=== PATIENT | female | born 1945 | race Caucasian/White ===

== ENCOUNTER → 2016-12-03 | Outpatient (CLI) | payer MEDICARE ==
[~2016-12-03] MED LIST: BUDE10.2 IH; CALC600T12 PO; CHOL50003 PO; LOVA20TA2 PO; MULT-963 PO; OMG1KC PO; OSTEO BI-FLEX1 EACH PO; ROSU20TA PO; RT-ALBUINH IH; [UNRECOGNIZED DRUG - OTHER] OU; calcium PO; symbicort inhaler IH
--- NOTE | 2016-12-03 18:33 | Diagnostic Imaging Report ---
EXAMINATION: DEXA scan. INDICATION: Osteopenia. TECHNIQUE: Bone mineral density estimated based on dual energy radiography over the lumbar spine and femoral necks, was performed. FINDINGS: The lumbar spine T-score is -2.5. This is 5% decreased density compared to 2013 exam. T-score over the left femoral neck is -0.6 and on the right is -0.5. IMPRESSION: Marked osteopenia. Dictated by: Dictated on workstation # [id number]
== END ==
LOC: RAD 10:13
PROVIDERS: ATTEND Nurse Practitioner Family
DX: M81.0 Age-related osteoporosis without current pathological fracture (principal)
CPT/HCPCS: 77080

== ENCOUNTER 2016-12-24 19:50 | Outpatient (CLI) | payer MEDICARE ==
[~2016-12-24 19:50] MED LIST changes: -BUDE10.2 IH; -CALC600T12 PO; -ROSU20TA PO; -RT-ALBUINH IH
[2016-12-25] MEDS ORDERED: BUDE10.2 IH (09:51)
[2016-12-25] MEDS ORDERED: CALC600T12 PO (09:51)
[2016-12-25] MEDS ORDERED: ROSU20TA PO (09:51)
[2016-12-25] MEDS ORDERED: RT-ALBUINH IH (09:51)
== END 2016-12-25 06:40 | disposition home or self-care (01) ==
LOC: SLEEP 19:50
PROVIDERS: ATTEND Nurse Practitioner Family
DX: G47.33 Obstructive sleep apnea (adult) (pediatric) (principal)
CPT/HCPCS: 95810

== ENCOUNTER 2016-12-25 05:29 | Outpatient (CLI) | payer MEDICARE ==
[~2016-12-25] VITALS: Ht 152.4 cm; Wt 49.9 kg
[2016-12-25] MEDS ORDERED: CALC600T12 PO (09:51)
[2016-12-25] MEDS ORDERED: RT-ALBUINH IH (09:51)
[2016-12-25] MEDS ORDERED: ROSU20TA PO (09:51)
[2016-12-25] MEDS ORDERED: BUDE10.2 IH (09:51)
== END 2016-12-25 09:58 ==
LOC: PREOP 05:29
PROVIDERS: ATTEND Surgery
DX: Z01.818 Encounter for other preprocedural examination (principal); Z12.11 Encounter for screening for malignant neoplasm of colon

== ENCOUNTER 2016-12-28 09:23 | Day surgery (SDC) | payer MEDICARE ==
[~2016-12-28] VITALS: Ht 152.4 cm; Wt 49.9 kg
[~2016-12-28 09:23] MED LIST changes: +BUDE10.2 IH; +CALC600T12 PO; +ROSU20TA PO; +RT-ALBUINH IH
[2016-12-28 09:35] VITALS: BP 109/67
[2016-12-28] MEDS ORDERED: NS IV 500 ML 500 ML IV PRN (09:35)
[2016-12-28] MEDS ORDERED: FLUMAZENIL (ROMAZICON) 0.1 MG/ML 5 ML VIAL INJ PRN (09:45)
[2016-12-28] MEDS ORDERED: NALOXONE 0.4 MG/ML 1 ML (NARCAN) VIAL IVP PRN (09:45)
[2016-12-28] MEDS ORDERED: NS IV 500 ML 500 ML ONE (09:53)
[2016-12-28] MEDS ORDERED: fentaNYL INJECTION 100 MCG/2 ML AMP ONE ×2 (11:10→11:46)
[2016-12-28] MEDS ORDERED: MIDAZOLAM 2 MG/2 ML (VERSED) VIAL ONE ×3 (11:11)
--- NOTE | 2016-12-28 11:27 | Conscious Sedation/ASA ---
Conscious Sedation Pre-Proced Time Reviewed: 11:27 ASA Class: 2 Airway Mallampati Classification: ([place] appropriate class) I. II. III, IV Lungs Heart ASA score ASA 1: a normal healthy patient ASA 2: a patient with a mild systemic disease (mid diabetes, controlled hypertension, obesity ASA 3: a patient with a severe systemic disease that limits activity (angina , COPD, prior Myocardial infarction) ASA 4: a patient with an incapacitating disease that is a constant threat to life (CHF, renal failure) ASA 5: a moribund patient not expected to survive 24 hrs. (ruptured aneurysm) ASA 6: a declared brain patient whose organs are being harvested. For emergent operations, add the letter E after the classification Grade 1 Sedation Plan: Discussed options with patient/fam Note The patient is an appropriate candidate to undergo the planned procedure, sedation, and anesthesia. The patient immediately re-assessed prior to indication. NATACHA VALDEZ MD December 28, 2016 11:27 am
[2016-12-28] MEDS: fentaNYL INJECTION 100 MCG/2 ML AMP IVP PRN ×4 (11:35→11:51)
[2016-12-28] MEDS: MIDAZOLAM 2 MG/2 ML (VERSED) VIAL IVP PRN ×3 (11:36→11:45)
--- NOTE | 2016-12-28 12:00 | Endoscopy Procedure Report ---
Endoscopy Report Date: December 28, 2016 Preoperative Diagnosis: polyp surveillance Study Performed: Colonoscopy Procedure Instrument: Colonoscope Endo Procedure/Findings Findings 1.: Diverticulosis NATACHA VALDEZ MD December 28, 2016 12:00 pm
--- NOTE | 2016-12-28 12:01 | Discharge Inst-Simple/Standard ---
Discharge Inst-Standard Discharge Medications New, Converted or Re-Newed RX: Other Patient Instructions/Follow Up Plan of Care/Instructions/FU: please obtain a CT of abdomen and pelvis CORI Activity as Tolerated: Yes Discharge Diet: No Restrictions NATACHA VALDEZ MD December 28, 2016 12:01 pm
[2016-12-28 12:20] VITALS: BP 145/79
[2016-12-28 12:25] VITALS: BP 145/79
[2016-12-28 13:00] VITALS: BP 152/81
[2016-12-28 13:45] VITALS: BP 152/81
--- NOTE | 2016-12-28 22:58 | OPERATIVE REPORT ---
DATE OF SERVICE: 12/28/2016 PROCEDURE: Flexible sigmoidoscopy/incomplete colonoscopy. SURGEON: Natacha Valdez MD. INDICATION FOR PROCEDURE: This lady came in for surveillance colonoscopy. In 2012, she was found to have polyps in her colon. Informed consent was obtained after reviewing the procedure in detail. DESCRIPTION OF PROCEDURE: She was placed in left lateral decubitus position and her vital signs were monitored. Conscious sedation was achieved using Versed and fentanyl. Examination of the perianal area revealed skin tags and some external hemorrhoids. Digital examination was unremarkable. The colonoscope was then introduced in the rectum and advanced to the distal sigmoid colon. Due to diverticular disease, despite multiple attempts, sigmoid colon could not be negotiated. Therefore further attempts were abandoned with arrangements for modified CT scan. She tolerated the procedure well and was taken back to the nursing area in a stable condition. IMPRESSION: 1. Polyp surveillance. 2. Incomplete colonoscopy. 3. CT scan pending. Job ID: [id number] DocumentID: [id number] Dictated Date: 12/28/2016 11:56:59 Street Supervisor Date: 12/28/2016 22:22:35 Dictated By: NATACHA VALDEZ MD MTDD
== END 2016-12-28 13:50 | disposition home or self-care (01) ==
LOC: ENDO 09:23
PROVIDERS: ATTEND Surgery
DX: Z09 Encounter for follow-up examination after completed treatment for conditions other than malignant neoplasm (principal); Z86.010 Personal history of colon polyps; K57.90 Diverticulosis of intestine, part unspecified, without perforation or abscess without bleeding; E78.5 Hyperlipidemia, unspecified; M19.90 Unspecified osteoarthritis, unspecified site

== ENCOUNTER → 2016-12-29 | Outpatient (CLI) | payer MEDICARE ==
--- NOTE | 2016-12-29 14:30 | Diagnostic Imaging Report ---
PROCEDURE: CT abdomen and pelvis with rectal contrast. No IV contrast. TECHNIQUE: Multiple contiguous axial images were obtained through the abdomen and pelvis without the use of intravenous contrast. Prone imaging is performed as well as supine for better evaluation of the colon. INDICATION: Diverticulosis. History of polyps. FINDINGS: The lung bases demonstrate minimal atelectasis. The liver, the gallbladder, the spleen, the pancreas appear unremarkable. There is a low density left adrenal mass measuring 4.6 x 2.8 cm, indeterminate and a 1.9 cm right adrenal mass. The kidneys demonstrate no hydronephrosis or urinary tract stones. There is a 5.1 cm abdominal aortic aneurysm which appears to start at the level of the renal arteries. No para-aortic significant enlarged lymph nodes. The rectum and the colon are opacified with contrast. The sigmoid colon is not well distended and demonstrate thickening of multiple folds and possible underlying polyps. There is also diverticular disease with no evidence of diverticulitis. There are small filling defects that are mobile in the rest of the colon suggestive of fecal material with no definite mass. The appendix is normal. The adnexa and uterus appear grossly unremarkable. Osseous structures demonstrate no suspicious abnormality. IMPRESSION: 1. A 5.1 cm AAA that appears to start at the level of the renal arteries. 2. Low density adrenal masses up to 4.6 cm on the left side. Evaluation with a contrast-enhanced study or MRI is recommended. 3. Diverticulosis. No diverticulitis. 4. Thickening of multiple mucosal folds in the sigmoid colon, which is not well distended. This could relate to an inflammatory etiology or underlying polyps. Correlate clinically and with followup sigmoidoscopy. The findings were discussed with Dr. Luke at time of dictation. Dictated by: Dictated on workstation # [id number]
== END ==
LOC: RAD 11:00
PROVIDERS: ATTEND Surgery
DX: K57.90 Diverticulosis of intestine, part unspecified, without perforation or abscess without bleeding (principal); I71.4 Abdominal aortic aneurysm, without rupture; E27.9 Disorder of adrenal gland, unspecified
CPT/HCPCS: 74176

== ENCOUNTER → 2018-01-20 | Outpatient (CLI) | payer MEDICARE ==
--- NOTE | 2018-01-20 16:42 | Diagnostic Imaging Report ---
INDICATION: Left hand and wrist pain and swelling. COMPARISON: None. FINDINGS: Three radiographic views of the left hand were obtained and show no evidence of acute fracture or dislocation. Osseous structures are intact. There are advanced osteoarthritic changes primarily involving the distal interphalangeal joint spaces, although there is involvement of the proximal interphalangeal joint space of the fifth digit as well. Note is made of somewhat gull-wing appearance to the distal interphalangeal joint spaces. Metallic foreign bodies are also noted within the lateral palmar soft tissues overlying the fourth distal phalanx. No other unexpected radiopaque foreign bodies are seen. Soft tissue structures are otherwise unremarkable. IMPRESSION: 1. No radiographic evidence of acute fracture or dislocation. 2. Advanced osteoarthritic changes, as described above. There may be some component of underlying erosive osteoarthritis. 3. Foreign bodies of the fourth digit, as described above. Report was called to the office of Dr. Venkatesh Hernandez at 4:40 p.m., by robbie (for MK). Dictated by: Dictated on workstation # [id number]
--- NOTE | 2018-01-20 16:43 | Diagnostic Imaging Report ---
EXAMINATION: Left wrist at 04:37 p.m. INDICATION: Wrist pain. FINDINGS: Three views were obtained. There are no prior studies available for comparison. There is no fracture, dislocation, or acute bony abnormality identified. The osseous structures are demineralized. There is moderate degenerative disease of the radiocarpal joint and there is severe degenerative disease of the triscaphe joint. There is also chondrocalcinosis of the triangular fibrocartilage. There is mild soft tissue edema about the wrist joint as well. IMPRESSION: 1. There is no evidence for an acute bony abnormality. 2. These results were discussed with Dr. Venkatesh Hernandez. Dictated by: Dictated on workstation # [id number]
== END ==
LOC: RAD 16:01
DX: M19.042 Primary osteoarthritis, left hand (principal); M79.5 Residual foreign body in soft tissue
CPT/HCPCS: 73110; 73130

== ENCOUNTER → 2018-04-19 | Outpatient (CLI) | payer MEDICARE ==
--- NOTE | 2018-04-19 11:59 | Diagnostic Imaging Report ---
CLINICAL INDICATION: Patient with stenosis and carotid artery screening. Comparison: Ultrasound of the carotid arteries dated 12/01/2012. Exam: Real-time carotid Doppler duplex imaging is performed bilaterally. Peak systolic velocity, ICA/CCA peak systolic ratio, spectral analysis, and vascular morphology are studied. Findings: ARTERY VELOCITY Right Left CCA 0.64 m/s 0.76 m/s ICA 0.75 m/s 0.72 m/s ECA 0.36 m/s 0.67 m/s ICA/CCA 1.2 0.9 VERT.ART Antegrade Antegrade There is progression of bilateral carotid artery atherosclerotic disease which is less than 50% stenosis on grayscale imaging. Impression: Progression of atherosclerotic disease involving the bilateral carotid arteries with no grayscale or Doppler evidence of significant vascular stenosis. Dictated by: Dictated on workstation # [id number]
== END ==
LOC: RAD 10:51
PROVIDERS: ATTEND Nurse Practitioner Family
DX: Z13.6 Encounter for screening for cardiovascular disorders (principal); I65.23 Occlusion and stenosis of bilateral carotid arteries
CPT/HCPCS: 93880

== ENCOUNTER 2018-08-06 07:05 | Outpatient (RCR) | payer MEDICARE ==
--- NOTE | 2018-08-02 15:21 | NUR ---
PHONED YESSENIA GARCIA APRN TO SEE ABOUT MIDLINE PLACEMENT DUE TO BID SOLUMEDROL. YESSENIA GARCIA APRN GAVE TELEPHONE ORDER FOR MIDLINE PLACEMENT, LABS: CRP, CBC AUTO DIFF, CMP TO BE DRAWN.
[2018-08-02 15:30] VITALS: BP 159/77
[2018-08-02] MEDS: methylPREDNISolone 125 MG (Solu-MEDROL) VIAL IV SCH (15:55)
[2018-08-02 16:06] LABS: BASOPHILS % (AUTO) 0 % (0-10); EOSINOPHILS % (AUTO) 0 % (0-10); HEMATOCRIT 42 % (35-52); HEMOGLOBIN 13.6 G/DL (11.5-16.0); LYMPHOCYTES # (AUTO) 0.7 X 10^3 (1.0-4.0); LYMPHOCYTES % (AUTO) 4 % (12-44); MEAN CORPUSCULAR HEMOGLOBIN 31 PG (25-34); MEAN CORPUSCULAR HGB CONC 32 G/DL (32-36); MEAN CORPUSCULAR VOLUME 94 FL (80-99); MEAN PLATELET VOLUME 8.7 FL (7.4-10.4); MONOCYTES # (AUTO) 0.9 X 10^3 (0.0-1.0); MONOCYTES % (AUTO) 5 % (0-12); NEUTROPHILS # (AUTO) 15.2 X 10^3 (1.8-7.8); NEUTROPHILS % (AUTO) 90 % (42-75); PLATELET COUNT 303 10^3/uL (130-400); RED CELL DISTRIBUTION WIDTH 14.9 % (10.0-14.5); WHITE BLOOD COUNT 16.8 10^3/uL (4.3-11.0)
--- NOTE | 2018-08-02 16:13 | Diagnostic Imaging Report ---
INDICATION: Shortness of breath. PA and lateral chest obtained at 4:31 p.m. FINDINGS: Heart and mediastinal silhouette are normal in appearance. Lungs appear clear. There is no pneumothorax or pleural fluid. There is mild hyperinflation compatible with COPD. IMPRESSION: Mild COPD change. No acute process in the chest. Dictated by: Dictated on workstation # [id number]
[2018-08-02 16:19] LABS: ALANINE AMINOTRANSFERASE 24 U/L (0-55); ALBUMIN 4.5 GM/DL (3.2-4.5); ALKALINE PHOSPHATASE 90 U/L (40-136); BILIRUBIN,TOTAL 0.4 MG/DL (0.1-1.0); BUN/CREATININE RATIO 12; CALCIUM 9.9 MG/DL (8.5-10.1); CARBON DIOXIDE 28 MMOL/L (21-32); CHLORIDE 99 MMOL/L (98-107); CREATININE SERUM 0.84 MG/DL (0.60-1.30); GFR ESTIMATED > 60; GLUCOSE 113 MG/DL (70-105); POTASSIUM 3.5 MMOL/L (3.6-5.0); SODIUM 140 MMOL/L (135-145); TOTAL PROTEIN 7.7 GM/DL (6.4-8.2)
[2018-08-02 16:30] LABS: BAND NEUTROPHILS 0 %; BASOPHILS % (MANUAL) 0 %; EOSINOPHILS % (MANUAL) 1 %; LYMPHOCYTES % (MANUAL) 6 %; MONOCYTES % (MANUAL) 6 %; NEUTROPHILS % (MANUAL) 87 %; RBC MORPH NORMAL
[2018-08-03 07:00] VITALS: BP 138/76
[2018-08-03] MEDS: methylPREDNISolone 125 MG (Solu-MEDROL) VIAL IV SCH ×2 (07:04→19:59)
[2018-08-03 20:01] VITALS: BP 142/65
[2018-08-04] MEDS: methylPREDNISolone 125 MG (Solu-MEDROL) VIAL IV SCH ×2 (07:08→20:11)
[2018-08-04 07:10] VITALS: BP 152/84
[2018-08-05] MEDS: methylPREDNISolone 125 MG (Solu-MEDROL) VIAL IV SCH ×2 (07:10→20:10)
[2018-08-05 07:15] VITALS: BP 160/85
[2018-08-05 20:09] VITALS: BP 156/83
--- NOTE | 2018-08-05 20:15 | NUR ---
This RN called Dr. Hernandez in reference to the patient complaining of pain in her left midline. The arm is swollen and red but not warm to the touch. Dr. Hernandez orders to have blood cultures taken, the midline removed and IM shots of Solumedrol given until the IV can be discussed with the patient in the office. All orders repeated and confirmed.
[~2018-08-06] VITALS: Ht 152.4 cm; Wt 49.1 kg
[~2018-08-06 07:05] MED LIST changes: -ROSU20TA PO; +ROSU20TA2 PO; +methylPREDNISolone 125 MG (Solu-MEDROL) VIAL ONE
[2018-08-06] MEDS: methylPREDNISolone 125 MG (Solu-MEDROL) VIAL IM SCH ×2 (07:28→20:02)
[2018-08-06 07:30] VITALS: BP 144/71
[2018-08-06 19:50] VITALS: BP 156/83
[2018-08-07] MEDS: methylPREDNISolone 125 MG (Solu-MEDROL) VIAL IM SCH (08:45)
--- NOTE | 2018-08-07 09:02 | NUR ---
This RN called patient, at approximately 0825am, to see if she was coming out to hospital for her steroid medication. The patient stated she was "not going to come this morning and doesn't want to continue to take the Solumedrol." Patient has received 04/29 doses. Patient was complaining of hypertension, being shakey and flushed, and "just don't feel right." Patient denied shortness of breath, chest pain, or lightheadedness. Patient states she regularly takes Bystolic 5mg PO daily, but since her blood pressure was so high she took a full 10mg last night and this morning. Patient reports a history of diabetes from taking steroids, states she has a glucometer at home. This RN instructed patient to take her blood sugar. This RN also instructed patient to go to ER, [facility], or [facility]. Patient refused, states she will try to call Dr. Hernandez's office tomorrow or make an appointment on Wednesday08/10/18. Dr. Hernandez unavailable today, will reach out to his office when available.
== END 2018-10-31 | disposition home or self-care (01) ==
LOC: SDC 07:05
PROVIDERS: ATTEND Nurse Practitioner Family
DX: J18.9 Pneumonia, unspecified organism (principal); J44.0 Chronic obstructive pulmonary disease with (acute) lower respiratory infection; J44.1 Chronic obstructive pulmonary disease with (acute) exacerbation; R06.09 Other forms of dyspnea; R05 Cough
CPT/HCPCS: 36415; 71046; 76937; 80053; 85007; 85027; 86141; 87040; 96365; 96372; 96374

== ENCOUNTER → 2018-09-06 | Outpatient (CLI) | payer MEDICARE ==
[~2018-09-06] MED LIST changes: +ROSU20TA PO; -ROSU20TA2 PO; -methylPREDNISolone 125 MG (Solu-MEDROL) VIAL ONE
--- NOTE | 2018-09-06 14:33 | Diagnostic Imaging Report ---
INDICATION: Bruising throughout the left ankle joint as well as swelling. TIME OF EXAM: 2:40 PM TECHNIQUE: Three views of the left ankle were obtained. FINDINGS: Alignment is normal. Ankle mortise is well-maintained. The talar dome is smooth. No fracture or dislocation is seen. IMPRESSION: No acute abnormality is detected. Report called to Dr. Caruso's office at 2:33 p.m. 09/06/2018/cb Dictated by: Dictated on workstation # [id number]
--- NOTE | 2018-09-06 14:33 | Diagnostic Imaging Report ---
PROCEDURE: US left lower extremity venous. TECHNIQUE: Multiple real-time grayscale images were obtained over the left lower extremity in various projections. Additional duplex Doppler and color Doppler images were also obtained. INDICATION: Swelling in the left lower extremity. FINDINGS: There is no evidence of left lower extremity DVT. Left lower extremity deep venous system shows normal compressibility with normal response to augmentation and Valsalva. No fluid collection or mass is seen. IMPRESSION: No evidence of left lower extremity DVT. Dictated by: Dictated on workstation # [id number]
== END ==
LOC: RAD 13:39
PROVIDERS: ATTEND Nurse Practitioner Family
DX: R22.42 Localized swelling, mass and lump, left lower limb (principal)
CPT/HCPCS: 73610

== ENCOUNTER → 2019-07-20 | Outpatient (CLI) | payer MEDICARE ==
[~2019-07-20] MED LIST changes: +ALPR1TAB7 PO; +ASPI-999 PO; +MULT-351 PO; +NFNEB10T PO; -ROSU20TA PO; +ROSU20TA2 PO; +UMEC1BLS IH
--- NOTE | 2019-07-20 18:28 | Diagnostic Imaging Report ---
INDICATION: Routine screening. Comparison is made with prior mammogram from 07/28/2016 and 07/25/2015. 2-D and 3-D bilateral screening mammography was performed with a Computer Aided Detection (CAD) system. 3-D tomosynthesis was also performed and reviewed. FINDINGS: Both breasts are heterogeneously dense, limiting the sensitivity of mammography. There are benign calcifications in both breasts. No mass or malignant appearing microcalcifications are seen. Axillae are unremarkable. IMPRESSION: No mammographic features suspicious for malignancy are identified. ACR BI-RADS Category 2: Benign findings. Result letter will be mailed to the patient. Note: At least 10% of breast cancer is not imaged by mammography. Dictated by: Dictated on workstation # [id number]
== END ==
LOC: RAD 14:09
DX: Z12.31 Encounter for screening mammogram for malignant neoplasm of breast (principal)
CPT/HCPCS: 77067

== ENCOUNTER 2019-08-01 15:27 | Outpatient (CLI) | payer MEDICARE ==
[~2019-08-01] VITALS: Ht 152 cm; Wt 46.8 kg
== END 2019-08-01 15:55 ==
LOC: PREOP 15:27
PROVIDERS: ATTEND Internal Medicine
DX: Z01.818 Encounter for other preprocedural examination (principal)

== ENCOUNTER 2019-08-04 08:02 | Day surgery (SDC) | payer MEDICARE ==
--- NOTE | 2019-07-24 12:16 | HISTORY AND PHYSICAL ---
DATE OF SERVICE: COLONOSCOPY HISTORY AND PHYSICAL HISTORY: The patient is a 73-year-old white female referred by Dr. Hernandez for surveillance colonoscopy. She reportedly had her first colonoscopy in 2012 for rectal bleeding. She had some hemorrhoids and 2 diminutive left-sided hyperplastic polyps that were removed. She had attempts of another colonoscopy in [address] Luke. It was a partial procedure due to severe diverticular disease. This ultimately led to surgical resection at another facility in 2018 where she reports she had a part of her sigmoid colon removed. Apparently shortly after, she did undergo a complete colonoscopy and had she believes eight polyps removed. It was recommended that she have a repeat procedure in one year, so she has been referred. She states that she has been feeling well. She has had no abdominal pain, distention, change in bowel habit, for which she tends towards constipation, bright red blood per rectum or melena. 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 PAST SURGICAL HISTORY: Other than her colectomy is significant for endograft repair of abdominal aortic aneurysm last year. FAMILY HISTORY: She is not aware of any history of colon cancer. Sister in her 60s was diagnosed with ovarian cancer. She is not aware of any family history for malignancy. SOCIAL HISTORY: She is retired, . No significant drinking history with 40 plus pack year smoking history. REVIEW OF SYSTEMS: CONSTITUTIONAL: The patient denies night sweats, chills or fever. PULMONARY: The patient reports stable dyspnea on exertion, occasional wheezing and sputum production without hemoptysis. CARDIOVASCULAR: The patient denies chest pain, orthopnea, PND, pedal edema, syncope or presyncope. GASTROINTESTINAL: As noted in the HPI. PHYSICAL EXAMINATION: GENERAL: Reveals a thin white female, in no acute distress, 5 feet tall, weighing 106 pounds. VITAL SIGNS: Blood pressure 150/90. HEENT: Unremarkable. NECK: Revealed no JVD, adenopathy or bruits. CHEST: Surprisingly is clear to auscultation. No wheezes, rales or rhonchi are noted. CARDIOVASCULAR: Reveals a regular rate and rhythm with a soft 1 to 2/6 systolic ejection murmur heard best over the aortic outflow tract without evidence for diastolic murmur, pulsus parvus et tardus. No S3 or S4 noted. ABDOMEN: Soft, supple without mass, organomegaly or tenderness. Bowel sounds are positive. No bruits are appreciated. EXTREMITIES: Reveal no cyanosis, clubbing or edema. ASSESSMENT AND PLAN: The patient will be set up for surveillance colonoscopy. Due to previous difficulties with colonoscopy and moderate chronic obstructive pulmonary disease, we will plan on doing the patient under anesthesia monitored Diprivan administration. With review of her electronic medical record and evaluation today, 40 minutes care time spent by myself and another 15 minutes of staff time going over prep instructions and setting up the procedure. I thank you for the referral of this pleasant lady. Job ID: [id number] DocumentID: [id number] Dictated Date: 07/20/2019 17:08:44 Manager Rn Date: 07/20/2019 17:37:49 Dictated By: SWATHI HOLT MD
[2019-08-04] VITALS (8 sets, daily range): BP systolic 109–156; BP diastolic 55–80
[~2019-08-04] VITALS: Ht 152.4 cm; Wt 46.8 kg
[2019-08-04] MEDS ORDERED: LACTATED RINGERS 1,000 ML IV ONE (08:05)
[2019-08-04] MEDS ORDERED: LIDOCAINE JELLY 2% 6 ML SYRINGE MM PRN (08:15)
[2019-08-04] MEDS ORDERED: LACTATED RINGERS 1,000 ML IV SCH (08:45)
--- NOTE | 2019-08-04 08:45 | Pre-Op Note & Conscious Sedat ---
Pre-Operative Progress Note H&P Reviewed The H&P was reviewed, patient examined and no changes noted. Date H&P Reviewed: Aug 04, 2019 Time H&P Reviewed: 08:45 Conscious Sedation Pre-Proced ASA Score 3 For ASA 3 and 4: Consider anesthesia and medical clearance. Also, for patients with a history of failed moderate sedation consider anesthesia. Airway Lungs Heart ASA score ASA 1: a normal healthy patient ASA 2: a patient with a mild systemic disease (mid diabetes, controlled hypertension, obesity ASA 3: a patient with a severe systemic disease that limits activity (angina, COPD, prior Myocardial infarction) ASA 4: a patient with an incapacitating disease that is a constant threat to life (CHF, renal failure) ASA 5: a moribund patient not expected to survive 24 hrs. (ruptured aneurysm) ASA 6: a declared brain- patient whose organs are being harvested. For emergent operations, add the letter E after the classification Mallampati Classification Grade 2 Sedation Plan Analgesia, Amnesia, Plan communicated to team members, Discussed options with patient/fam, Discussed risks with patient/fam The patient is an appropriate candidate to undergo the planned procedure, sedation, and anesthesia. The patient immediately re-assessed prior to indication. SWATHI HOLT MD Aug 04, 2019 08:45
[2019-08-04] MEDS ORDERED: PROPOFOL INJECTION 50 ML IV ONE (08:47)
[2019-08-04] MEDS ORDERED: MIDAZOLAM 2 MG/2 ML (VERSED) VIAL ONE (08:48)
--- NOTE | 2019-08-04 13:17 | Anesthesia-General Post-Op ---
MAC Patient Condition Mental Status/LOC: Same as Preop Cardiovascular: Satisfactory Nausea/Vomiting: Absent Respiratory: Satisfactory Pain: Controlled Complications: Absent Post Op Complications Complications None Follow Up Care/Instructions Patient Instructions None needed. Anesthesiology Discharge Order Discharge Order Patient is doing well, no complaints, stable vital signs, no apparent adverse anesthesia problems. No complications reported per nursing. DANAE GUSTAFSON CRNA Aug 04, 2019 13:17
--- NOTE | 2019-08-04 19:49 | OPERATIVE REPORT ---
DATE OF SERVICE: COLONOSCOPY SUMMARY INDICATION FOR THE PROCEDURE: Surveillance colonoscopy due to the past history of colon polyps. DESCRIPTION OF PROCEDURE: The patient was placed in the left lateral decubitus position. Prior to undergoing colonoscopy, digital rectal evaluation was performed. Anal sphincter tone was normal and the perianal reflexes intact. No abnormalities noted on digital inspection of anal canal or distal rectal vault. The colonoscope was then inserted into the rectum and under direct visualization advanced to cecum. The cecum was identified by identification of ileocecal valve and cecal strap. Photographic documentation was obtained. Careful inspection was made as the colonoscope withdrawn. The quality of prep was good. FINDINGS: There was no evidence for internal or external hemorrhoids and the rectum was unremarkable. An unremarkable anastomotic margin was noted in the distal sigmoid colon. No diverticular disease was identified and what remains at the sigmoid colon was otherwise unremarkable. The descending colon, splenic flexure, transverse colon, hepatic flexure, ascending colon and cecum were unremarkable. ASSESSMENT: Unremarkable colonoscopy to the cecum. No evidence for neoplasia identified. Unremarkable appearing distal sigmoid anastomotic margin with no remaining evidence for diverticular disease. Considering this patient's age and medical comorbidities including moderate chronic obstructive pulmonary disease and continued smoking, I would not advocate future surveillance colonoscopy. The patient was reassured by today's findings. I thank you for the referral of this pleasant lady. Job ID: [id number] DocumentID: [id number] Dictated Date: 08/04/2019 11:41:55 Form Block Maker Date: 08/04/2019 19:48:51 Dictated By: SWATHI HOLT MD
== END 2019-08-04 10:25 | disposition home or self-care (01) ==
LOC: ENDO 08:02
PROVIDERS: ATTEND Internal Medicine
DX: Z12.11 Encounter for screening for malignant neoplasm of colon (principal); J44.9 Chronic obstructive pulmonary disease, unspecified; I10 Essential (primary) hypertension; E78.5 Hyperlipidemia, unspecified; I73.9 Peripheral vascular disease, unspecified; Z80.41 Family history of malignant neoplasm of ovary; Z88.3 Allergy status to other anti-infective agents; Z86.010 Personal history of colon polyps; Z87.891 Personal history of nicotine dependence; Z88.1 Allergy status to other antibiotic agents; Z88.8 Allergy status to other drugs, medicaments and biological substances

== ENCOUNTER 2022-03-08 12:34 | Inpatient (IN) | payer MEDICARE ==
[~2022-03-08] VITALS: Ht 152.4 cm; Wt 46.5 kg
[~2022-03-08 12:34] MED LIST changes: -CALC600T12 PO; +CALC600T91 PO
[2022-03-08 14:44] VITALS: BP 127/71
[2022-03-08] MEDS ORDERED: diphenhydrAMINE 50 MG/ML INJ (BENADRYL) IVP PRN (14:45)
[2022-03-08] MEDS ORDERED: LACTULOSE SYRUP 10GM/15ML (ENULOSE) 30ML UDC PO PRN (14:45)
[2022-03-08] MEDS ORDERED: MILK OF MAGNESIA 400 MG/5 ML 30 ML UDC PO PRN (14:45)
[2022-03-08] MEDS ORDERED: diphenhydrAMINE 25 MG TAB (BENADRYL) PO PRN (14:45)
[2022-03-08] MEDS ORDERED: ACETAMINOPHEN 325 MG TABLET PO PRN (14:45)
[2022-03-08] MEDS ORDERED: polyethylene glycoL POWDER 17 GM (MIRALAX) PACK PO PRN (14:45)
[2022-03-08] MEDS ORDERED: ANTACID SUSP 30 ML UDC (MYLANTA) PO PRN (14:45)
[2022-03-08] MEDS ORDERED: MELATONIN 3 MG TABLET PO PRN (14:45)
[2022-03-08] MEDS ORDERED: ONDANSETRON 4 MG/2 ML (SDV) Z0FRAN IV PRN (14:45)
[2022-03-08] MEDS ORDERED: ONDANSETRON 4 MG (ZOFRAN) ORAL DISSOLVE TAB PO PRN (14:45)
[2022-03-08] MEDS ORDERED: BISACODYL 10 MG SUPP (DULCOLAX) PR PRN (14:45)
[2022-03-08] MEDS ORDERED: CALCIUM CARBONATE 500 MG (TUMS) TAB.CHEW PO PRN (14:45)
[2022-03-08] MEDS: LACTATED RINGERS 1,000 ML IV SCH (15:04)
[2022-03-08] MEDS: cefTRIAXone 1 GM PRE-MIX 50 ML IV SCH (15:04)
[2022-03-08 16:42] VITALS: BP 137/76
[2022-03-08] MEDS: DOCUSATE SODIUM 100 MG (COLACE) CAP PO SCH (19:45)
[2022-03-08] MEDS: SENNOSIDES 8.6 MG (SENOKOT) TAB PO SCH (19:45)
[2022-03-08 19:47] VITALS: BP 127/69
[2022-03-08] MEDS: ROSUVASTATIN 20 MG (CRESTOR) TABLET PO SCH (19:52)
[2022-03-08 22:19] VITALS: BP 127/69
[2022-03-08] MEDS ORDERED: RT-ALBUTEROL SULF 2.5 MG/3 ML PRE-MIX VIAL INH PRN (22:30)
[2022-03-09] VITALS: BP 134/75
[2022-03-09] MEDS: LACTATED RINGERS 1,000 ML IV SCH ×3 (01:38→20:11)
[2022-03-09 03:38] VITALS: BP 130/67
[2022-03-09] MEDS: RT-ALBUTEROL SULF 2.5 MG/3 ML PRE-MIX VIAL INH SCH ×6 (04:17→21:57)
[2022-03-09 06:02] LABS: HEMATOCRIT 38 % (35-52); MEAN CORPUSCULAR HEMOGLOBIN 30 pg (25-34); MEAN CORPUSCULAR HGB CONC 34 g/dL (32-36); MEAN CORPUSCULAR VOLUME 88 fL (80-99); MEAN PLATELET VOLUME 9.9 fL (9.0-12.2); PLATELET COUNT 209 10^3/uL (130-400); WHITE BLOOD COUNT 20.4 10^3/uL (4.3-11.0)
[2022-03-09 06:16] LABS: POTASSIUM 3.6 MMOL/L (3.6-5.0)
[2022-03-09 06:17] LABS: CALCIUM 9.4 MG/DL (8.5-10.1)
[2022-03-09] MEDS: POTASSIUM CL 10MEQ/50ML IVPB 50 ML IV SCH (06:18)
[2022-03-09] MEDS: KCL 20 MEQ TAB (K-DUR) PO SCH (06:19)
[2022-03-09 06:21] LABS: CREATININE SERUM 0.72 MG/DL (0.60-1.30)
[2022-03-09] MEDS: MAGNESIUM 1 GM/100 ML IVPB 100 ML IV SCH (06:24)
[2022-03-09] MEDS ORDERED: KCL 20 MEQ TAB (K-DUR) PO ONE (08:00)
--- NOTE | 2022-03-09 08:15 | Diagnostic Imaging Report ---
EXAMINATION: Chest 1 view HISTORY: Pneumonia COMPARISON: 08/02/2018 FINDINGS: Heart size and pulmonary vasculature are normal. There is patchy consolidation within the right perihilar mid and lower lung. No pleural effusion or pneumothorax. The osseous structures are intact. Vascular stent is seen overlying the upper abdomen. IMPRESSION: 1. Patchy consolidation within the right perihilar lung concerning for pneumonia. Dictated by: Dictated on workstation # [id number]
[2022-03-09 08:16] VITALS: BP 146/64
[2022-03-09] MEDS: DOCUSATE SODIUM 100 MG (COLACE) CAP PO SCH ×2 (08:32→20:11)
[2022-03-09] MEDS: SENNOSIDES 8.6 MG (SENOKOT) TAB PO SCH ×2 (08:33→20:11)
--- NOTE | 2022-03-09 08:53 | History & Physical-Hospitalist ---
History of Present Illness HPI/Chief Complaint Patient 76-year-old female with past medical history of COPD who presented to the emergency department [place] due to weakness and shortness of breath. She states she had been feeling poorly for 3 to 4 days but had been attempting to avoid the hospital. She had a friend check on her yesterday who recommended that she go to a shelter. She continued to refuse so the friend notified the patient's son and the son called the police for a welfare check. At that time she elected to be seen in the emergency department. She complains of cough, shortness of breath. She has been very weak and diaphoretic . She also had nausea and vomiting. She was found to have pneumonia and was admitted for further management. She reports feeling much better today. Source: patient Date Seen 03/09/22 Time Seen by a Provider: 08:50 Attending Physician Eleazar Pitts MD PCP Admitting Physician: Ruben Kowalski MD Attending Physician: Ruben Kowalski MD Referring Physician Date of Admission Mar 08, 2022 at 14:25 Home Medications & Allergies Home Medications Reviewed patient Home Medication Reconciliation performed by pharmacy medication reconciliations pm technician and/or nursing. Patients Allergies have been reviewed. Allergies Allergies Coded Allergies Iodinated Contrast Media (Verified Allergy, Severe, BURING ALL OVER BODY, 08/01/19) diazepam (Unverified Allergy, Severe, OPPOSITE REACTION, 08/01/19) levofloxacin (Verified Allergy, Severe, MUSCLE WEAKNESS, 08/01/19) Past Comzxbv-Oredod-Okovdw Hx Patient Social History Marrital Status: single Employed/Student: retired Tobacco Use?: Yes Tobacco type used: Cigarettes Smoking Status: Current Everyday Smoker Use of E-Cig and/or Vaping dev: No Substance use?: Yes Substance type: Nicotine Substance frequency: Daily Alcohol Use?: No Pt feels they are or have been: No Immunizations Up To Date Tetanus Booster (TDap): Unknown Hepatitis A: No Hepatitis B: No Seasonal Allergies Seasonal Allergies: Yes Current Status status: No status: No Advance Directives: Yes Advance Directive Location: Home Communicates: Verbally Primary Language: Argentine Preferred Spoken Language: Argentine Is interpretation needed?: No Additional sensory deficits: WEARS READING GLASSES Past Medical History Surgeries: Oophorectomy COPD High Cholesterol, Hypertension Sexually Transmitted Disease: No HIV/AIDS: No Arthritis Loss of Vision: Denies Hearing Impairment: Denies Anxiety Blood Disorders: No Adverse Reaction/Blood Tranf: No (HAS HAD BLOOD WITH NO REACTION) Family Medical History Reviewed Nursing Family Hx No Pertinent Family Hx Review of Systems Constitutional: chills, fever, malaise EENTM: no symptoms reported Respiratory: see HPI, cough Cardiovascular: no symptoms reported Gastrointestinal: nausea, vomiting Genitourinary: no symptoms reported Skin: no symptoms reported Psychiatric/Neurological: No Symptoms Reported Physical Exam Physical Exam Vital Signs Vital Signs - First Documented 03/08/22 03/08/22 14:44 22:19 Temp 36.3 Pulse 89 Resp 17 B/P (MAP) 127/71 (89) Pulse Ox 93 O2 Delivery Room Air FiO2 21 Capillary Refill : Height, Weight, BMI Height: 5'0.00" Weight: 108lbs. 4.0oz. 49.592924mb; 20.02 BMI Method: General Appearance: No Apparent Distress, WD/WN, Thin HEENT: PERRL/EOMI, Moist Mucous Membranes Neck: Normal Inspection, Supple Respiratory: No Accessory Muscle Use, No Respiratory Distress, Wheezing Cardiovascular: Regular Rate, Rhythm, No Murmur Gastrointestinal: Normal Bowel Sounds, Non Tender, Soft Extremity: Normal Capillary Refill, No Calf Tenderness, No Pedal Edema Neurologic/Psychiatric: Alert, Oriented x3, Normal Mood/Affect Skin: Normal Color, Warm/Dry Results Results/Procedures Labs Laboratory Tests 03/09/22 05:10 Patient resulted labs reviewed. Imaging: Reviewed Imaging Report Imaging [facility] [place], [place] NAME: HEMANTH WALKER [facility] REC#: [id number] PT STATUS: ADM IN : 1945 PHYSICIAN: RUBEN KOWALSKI MD ADMIT DATE: 03/08/22/ Draft Date of Exam:03/09/22 CHEST 1 VIEW, AP/PA ONLY EXAMINATION: Chest 1 view HISTORY: Pneumonia COMPARISON: 08/02/2018 FINDINGS: Heart size and pulmonary vasculature are normal. There is patchy consolidation within the right perihilar mid and lower lung. No pleural effusion or pneumothorax. The osseous structures are intact. Vascular stent is seen overlying the upper abdomen. IMPRESSION: 1. Patchy consolidation within the right perihilar lung concerning for pneumonia. Dictated on workstation # [id number] Dict: 03/09/22 0808 Trans: 03/09/22 0815 [facility] [id number] Interpreted by: STEFANY FERRER DO Electronically signed by: Assessment/Plan Admission Diagnosis CAP Admission Status: Inpatient Order (span 2 midnights) Reason for Inpatient Admission: see below Assessment and Plan CAP COPD exacerbation Continue on IV abx Add steroids Leukocytosis 20 still today, up for 18 Unsure if she received steroids at OSH MAT protocol HTN BP well controlled Tobacco abuse Recommend cessation DVT ppx: Lovenox Diagnosis/Problems Diagnosis/Problems (1) Sepsis due to pneumonia Status: Acute (2) COPD (chronic obstructive pulmonary disease) Status: Chronic Qualifiers: COPD type: COPD with acute lower respiratory infection Qualified Codes: J44.0 - Chronic obstructive pulmonary disease with (acute) lower respiratory infection (3) HTN (hypertension) Status: Chronic Qualifiers: Hypertension type: primary hypertension Qualified Codes: I10 - Essential (primary) hypertension (4) Tobacco abuse Status: Chronic FAUSTO MELENDEZ MD Mar 09, 2022 08:53
[2022-03-09] MEDS: AZITHROMYCIN 250 MG TAB (ZITHROMAX) PO SCH (08:54)
[2022-03-09] MEDS: ENOXAPARIN 40 MG/0.4 ML (LOVENOX) SYR SC SCH (08:54)
--- NOTE | 2022-03-09 09:47 | Physical Therapy Evaluation ---
PT Evaluation-General Medical Diagnosis Admission Date Mar 08, 2022 at 14:25 Medical Diagnosis: sepsis pneumonia Onset Date: Mar 08, 2022 Therapy Diagnosis Therapy Diagnosis: debility/weakness Height/Weight Height (Feet): 5 Height (Inches): 0.00 Weight (Pounds): 108 Weight (Ounces): 4.0 Precautions Precautions/Isolations: Fall Prevention, Standard Precautions Referral Physician: Enrike Reason for Referral: Evaluation/Treatment Medical History Pertinent Medical History: COPD, HTN, PVD, Smoking Current History admit from OSH Reviewed History: Yes Social History Home: Single Level Current Living Status: Alone Entry Into Home: Stairs With Railing PT Steps Into Home: 4 Prior Prior Level of Function SCALE: Activities may be completed with or without assistive devices. 3-Hnhwhjgsaa-fhsihuk completes the activity by him/herself with no assistance from a helper. 5-Set-up or Clean-up Assistance-helper sets up or cleans up; patient completes activity. [place] assists only prior to or following the activity. 4-Supervision or Touching Assistance-helper provides verbal cues and/or touching/steadying and/or contact guard assistance as patient completes activity. Assistance may be provided throughout the activity or intermittently. 3-Partial/Moderate Assistance-helper does LESS THAN HALF the effort. [place] lifts, holds or supports trunk or limbs, but provides less than half the effort. 2-Substantial/Maximal Assistance-helper does MORE THAN HALF the effort. [place] lifts or holds trunk or limbs and provides more than half the effort. 1-Iutlwzelj-twmjfd does ALL the effort. Patient does none of the effort to complete the activity. Or, the assistance of 2 or more helpers is required for the patient to complete the activity. If activity was not attempted, code reason: 7-Patient Refused. 9-Not Applicable-not attempted and the patient did not perform the activity before the current illness, exacerbation or injury. 10-Not Attempted due to Environmental Limitations-(lack of equipment, weather restraints, etc.). 88-Not Attempted due to Medical Conditions or Safety Concerns. Bed Mobility: 6 Transfers (B,C,W/C): 6 Gait: 6 Stairs: 6 Indoor Mobility (Ambulation): Independent Stairs: Independent Prior Devices Use: Walker (PRN) PT Evaluation-Current Subjective Patient agrees to PT. Objective Patient Orientation: Normal For Age Attachments: IV ROM/Strength ROM Lower Extremities bilateral LE WFL Strength Lower Extremities 4-/5 grossly bilateral LE all planes Integumentary/Posture Integumentary refer to nursing notes Bowel Incontinence: No Bladder Incontinence: No Posture WFL Neuromuscular (Tone, Coordination, Reflexes) grossly intact Sensory Vision: Functional Hearing: Functional Transfers Lying to Sitting/Side of Bed(Q: 6 Sit to Stand (QC): 4 Chair/Lzd-be-Vgigp Xfer(QC): 4 Gait Does the Patient Walk?: Yes Mode of Locomotion: Walk Anticipated Mode of Locomotion: Walk Walk 10 feet (QC): 5 Walk 50 ft with 2 Turns(QC): 5 Walk 150 ft (QC): 5 Distance: 500' Gait Assistive Device: FWW Comments/Gait Description steady, functional gait sequence Balance Sitting Static: Normal Sitting Dynamic: Normal Standing Static: Normal Standing Dynamic: Normal Assessment/Needs 76 y.o. female, will be seen short term by skilled PT to address functional mobility to ensure safe return to home at maximum LOF. Rehab Potential: Fair PT Bulk Plant Agent Goals Bulk Plant Agent Goals PT Jail Goals Time Frame: Mar 14, 2022 Roll Left & Right (QC): 6 Sit to Lying (QC): 6 Lying-Sitting on Side/Bed(QC): 6 Sit to Stand (QC): 6 Chair/Qlj-ad-Bnaus Xfer(QC): 6 Toilet Transfer (QC): 6 Walk 10 feet (QC): 6 Walk 50ft with 2 Turns (QC): 6 Walk 150 ft (QC): 6 PT Plan Treatment/Plan Treatment Plan: Continue Plan of Care Treatment Plan: Education, Functional Activity Catherine, Functional Strength, Gait, Safety, Therapeutic Exercise, Transfers Treatment Duration: Mar 14, 2022 Frequency: 6 times per week Estimated Hrs Per Day: .25 hour per day Patient and/or Family Agrees t: Yes Time/GCodes Time In: 800 Time Out: 811 Total Billed Treatment Time: 11 Total Billed Treatment 1 visit EVModC 11 min JUANA PASCUAL PT Mar 09, 2022 09:47
[2022-03-09] MEDS ORDERED: predniSONE 20 MG TAB PO ONE (10:00)
--- NOTE | 2022-03-09 11:25 | Occupational Therapy Eval ---
OT Evaluation-General/PLF Medical Diagnosis Admission Date Mar 08, 2022 at 14:25 Medical Diagnosis: sepsis pneumonia Onset Date: Mar 08, 2022 Therapy Diagnosis Therapy Diagnosis: decreased ADL status and weakness Height/Weight Height (Feet): 5 Height (Inches): 0.00 Weight (Pounds): 108 Weight (Ounces): 4.0 Precautions Precautions/Isolations: Fall Prevention, Standard Precautions Referral Physician: Enrike Referral Reason: Evaluation/Treatment Medical History Pertinent Medical History: COPD, HTN, PVD, Smoking Additional Medical History COPD, HLD, HTN, arthritis, anxiety, and smoking Current History admit from OS Social History Home: Single Level Current Living Status: Alone Entry Into Home: Stairs With Railing Steps Into Home: 4 ADL-Prior Level of Function SCALE: Activities may be completed with or without assistive devices. 5-Mmjvqkuaeu-vqukjvg completes the activity by him/herself with no assistance from a helper. 5-Set-up or Clean-up Assistance-helper sets up or cleans up; patient completes activity. [place] assists only prior to or following the activity. 4-Supervision or Touching Assistance-helper provides verbal cues and/or touching/steadying and/or contact guard assistance as patient completes activity. Assistance may be provided throughout the activity or intermittently. 3-Partial/Moderate Assistance-helper does LESS THAN HALF the effort. [place] lifts, holds or supports trunk or limbs, but provides less than half the effort. 2-Substantial/Maximal Assistance-helper does MORE THAN HALF the effort. [place] lifts or holds trunk or limbs and provides more than half the effort. 4-Gnjmaxiks-jkdbya does ALL the effort. Patient does none of the effort to complete the activity. Or, the assistance of 2 or more helpers is required for the patient to complete the activity. If activity was not attempted, code reason: 7-Patient Refused. 9-Not Applicable-not attempted and the patient did not perform the activity before the current illness, exacerbation or injury. 10-Not Attempted due to Environmental Limitations-(lack of equipment, weather restraints, etc.). 88-Not Attempted due to Medical Conditions or Safety Concerns. ADL PLOF Comments Pt reports being IND with all ADLs at PLOF. She has a FWW at home, but she has not used it regularly for ~1.5 years, only uses it when she feels dizzy. She takes a bath every three days d/t dry skin and not mobility/fatigue issues. Pt reports being active but then later admits that she spends most of the day on her couch, so prior level of activity is unknown. Pt has three children: one son who lives next door to her but does not provide any assistance, a daughter that she only visits with on the phone, and a son who lives in [place] and visits her almost every week. Pt shared that she believes that she is at her baseline for self-care activities at this time. Self Care: Independent Functional Cognition: Independent DME/Equipment: Tub [address] Self: Yes OT Current Status Subjective Pt sitting in recliner upon OT arrival, agreeable to eval/tx. Pt stated that she feels like she is at her baseline for ADLs and does not think she needs skilled OT services at this time. Mental Status/Objective Patient Orientation: Person, Place, Situation Attachments: IV, Telemetry Current Glasses/Contacts: Yes Dentures/Partials: Yes Hand Dominance: Right Upper Extremity ROM bilaterally WFL; no deficits noted Upper Extremity Coordination no deficits noted Upper Extremity Sensation Pt reports no sensation deficits in BUE Upper Extremity Strength BUE grossly 3+/5 ADL-Treatment Eating (QC): 6 (per nursing report) Oral Hygiene (QC): 6 (standing at sink) On/Off Footwear (QC): 6 (seated EOB) Toileting Hygiene (QC): 6 Other Treatments Pt provided information about PLOF and living conditions while seated in recliner. She was agreeable to participate in ADLs, so she used FWW to walk to bathroom, IND, and complete toileting and oral care/grooming tasks standing at the sink. Pt independently walked with FWW to sit on EOB, demonstrated IND in footwear, and transferred to supine. Pt was educated on the purpose and benefit of skilled OT services in increasing IND in ADLs and BUE strength and endurance. Pt verbalized understanding, but politely declined services as she believes she is at her PLOF regarding self-care activities. Pt informed to have nursing notify OT if any ADL concerns arise. Post tx, pt left in bed with call light in reach and all needs met. Education OT Patient Education: Correct positioning, Energy conservation, Exercise program, Modified ADL techniques, Progress toward Goal/Update tx plan, Purpose of tx/functional activities, Rehab process, Transfer techniques Teaching Recipient: Patient Teaching Methods: Discussion Response to Teaching: Verbalize Understanding OT Website Designer Goals [facility] Goals 1=Demonstrate adherence to instructed precautions during ADL tasks. 2=Patient will verbalize/demonstrate understanding of assistive devices/modifications for ADL. 3=Patient will improve strength/tolerance for activity to enable patient to perform ADL's. OT Education/Plan Problem List/Assessment Assessment: No Skilled OT Needs ID'd Pt believes she is at her PLOF for ADLs and does not have any concerns, so she politely declines skilled OT services at this time. She demonstrated IND in eating, toileting, oral care, and footwear during tx. Pt told to have nursing staff notify OT if any ADL concerns arise. D/c from OT at this time. Discharge Recommendations Plan/Recommendations: Discharge/Goals Met Treatment Plan/Plan of Care Patient would benefit from OT for education, treatment and training to promote independence in ADL's, mobility, safety and/or upper extremity function for ADL's. Plan of Care: ADL Retraining, Functional Mobility, UE Funct Exercise/Act Treatment Duration: Mar 09, 2022 Frequency: 1 time per week (eval only) Rehab Potential: Fair Time/GCodes Start Time: 08:16 Stop Time: 08:39 Total Time Billed (hr/min): 23 Billed Treatment Time 1, EVL (10'), ADL (13') MAGNUS HIGGINS OT Mar 09, 2022 11:25
[2022-03-09 11:44] VITALS: BP 115/63
[2022-03-09] MEDS: cefTRIAXone 1 GM PRE-MIX 50 ML IV SCH (15:36)
[2022-03-09 16:03] VITALS: BP 134/67
[2022-03-09 19:35] VITALS: BP 153/85
[2022-03-09] MEDS ORDERED: guaiFENesin/DM (ROBITUSSIN DM) 10 ML UDC PO PRN (19:45)
[2022-03-09] MEDS: ALPRAZolam 1 MG (XANAX) TAB PO PRN (20:10)
[2022-03-09] MEDS: ROSUVASTATIN 20 MG (CRESTOR) TABLET PO SCH (20:10)
[2022-03-10] MEDS: guaiFENesin (MUCINEX) 600 MG TAB PO SCH ×2 (00:34→08:05)
[2022-03-10 00:37] VITALS: BP 149/72
[2022-03-10] MEDS: RT-ALBUTEROL SULF 2.5 MG/3 ML PRE-MIX VIAL INH SCH ×2 (02:27→09:38)
[2022-03-10 05:00] VITALS: BP 157/88
[2022-03-10 05:32] LABS: HEMATOCRIT 33 % (35-52); HEMOGLOBIN 10.9 g/dL (11.5-16.0); MEAN CORPUSCULAR HEMOGLOBIN 29 pg (25-34); MEAN CORPUSCULAR HGB CONC 33 g/dL (32-36); MEAN CORPUSCULAR VOLUME 88 fL (80-99); MEAN PLATELET VOLUME 9.3 fL (9.0-12.2); PLATELET COUNT 226 10^3/uL (130-400); WHITE BLOOD COUNT 12.3 10^3/uL (4.3-11.0)
[2022-03-10] MEDS: LACTATED RINGERS 1,000 ML IV SCH (05:36)
[2022-03-10 05:48] LABS: POTASSIUM 3.5 MMOL/L (3.6-5.0)
[2022-03-10 05:49] LABS: CALCIUM 9.1 MG/DL (8.5-10.1)
[2022-03-10 05:53] LABS: CREATININE SERUM 0.74 MG/DL (0.60-1.30)
[2022-03-10 05:55] LABS: MAGNESIUM 1.8 MG/DL (1.6-2.4)
[2022-03-10] MEDS: MAGNESIUM 1 GM/100 ML IVPB 100 ML IV SCH (05:59)
[2022-03-10] MEDS: POTASSIUM CL 10MEQ/50ML IVPB 50 ML IV SCH (05:59)
[2022-03-10] MEDS: KCL 20 MEQ TAB (K-DUR) PO SCH (06:00)
[2022-03-10] MEDS ORDERED: KCL 20 MEQ TAB (K-DUR) PO ONE ×2 (06:00→08:00)
[2022-03-10] MEDS ORDERED: predniSONE 20 MG TAB PO SCH (07:00)
[2022-03-10 07:29] VITALS: BP 170/77
[2022-03-10] MEDS: DOCUSATE SODIUM 100 MG (COLACE) CAP PO SCH (08:05)
[2022-03-10] MEDS: ALPRAZolam 1 MG (XANAX) TAB PO PRN (08:05)
[2022-03-10] MEDS: SENNOSIDES 8.6 MG (SENOKOT) TAB PO SCH (08:05)
[2022-03-10] MEDS: AZITHROMYCIN 250 MG TAB (ZITHROMAX) PO SCH (08:05)
[2022-03-10] MEDS: ENOXAPARIN 40 MG/0.4 ML (LOVENOX) SYR SC SCH (08:06)
--- NOTE | 2022-03-10 08:47 | Discharge Inst-Simple/Standard ---
Discharge Inst-Standard Discharge Medications New, Converted or Re-Newed RX: Transmitted to Pharmacy Patient Instructions/Follow Up Plan of Care/Instructions/FU: Please continue to take your medications as written. Please follow up with your primary care doctor to follow up this hospital stay. Activity as Tolerated: Yes Discharge Diet: No Restrictions Return to The Hospital For: Chest pain, shortness of breath, fever, weakness, if you feel you are getting worse. FAUSTO MELENDEZ MD Mar 10, 2022 08:47
[2022-03-10] MEDS ORDERED: AZIT250T12 PO (08:50)
[2022-03-10] MEDS ORDERED: CEPH500T PO (08:50)
--- NOTE | 2022-03-10 08:52 | Discharge Summary ---
Diagnosis/Chief Complaint Date of Admission Mar 08, 2022 at 14:25 Date of Discharge Discharge Date: Mar 10, 2022 Admission Diagnosis CAP Primary Care Eleazar Pitts MD Discharge Diagnosis (1) Sepsis due to pneumonia Status: Acute (2) COPD (chronic obstructive pulmonary disease) Status: Chronic (3) HTN (hypertension) Status: Chronic (4) Tobacco abuse Status: Chronic Discharge Summary Discharge Physical Exam Allergies: Coded Allergies: Iodinated Contrast Media (Verified Allergy, Severe, BURING ALL OVER BODY, 08/01/19) diazepam (Unverified Allergy, Severe, OPPOSITE REACTION, 08/01/19) levofloxacin (Verified Allergy, Severe, MUSCLE WEAKNESS, 08/01/19) Vitals & I&Os Vital Signs Date Time Temp Pulse Resp B/P (MAP) Pulse Ox O2 Delivery O2 Flow Rate FiO2 03/10/22 08:00 96 Room Air 03/10/22 07:29 37.0 79 18 170/77 (108) 03/08/22 22:19 21 General Appearance: No Apparent Distress, Thin Respiratory: Lungs Clear, No Respiratory Distress Cardiovascular: Regular Rate, Rhythm, No Murmur Neurologic/Psychiatric: Alert, Oriented x3 Hospital Course Patient was admitted to the hospital secondary to sepsis from pneumonia. She was tested for COVID and was negative. She was treated with IV antibiotics and did well. She was discharged home in stable and improved condition to follow-up with her primary care physician. Labs (last 24 hrs) Laboratory Tests 03/10/22 05:19: White Blood Count 12.3H, Red Blood Count 3.73L, Hemoglobin 10.9L, Hematocrit 33L , Mean Corpuscular Volume 88, Mean Corpuscular Hemoglobin 29, Mean Corpuscular Hemoglobin Concent 33, Red Cell Distribution Width 16.0H, Platelet Count 226, Mean Platelet Volume 9.3, Sodium Level 138, Potassium Level 3.5L, Chloride Level 106, Carbon Dioxide Level 23, Anion Gap 9, Blood Urea Nitrogen 9, Creatinine 0.74, Estimat Glomerular Filtration Rate 84, BUN/Creatinine Ratio 12, Glucose Level 121H, Calcium Level 9.1, Magnesium Level 1.8 Patient resulted labs reviewed. Pending Labs Laboratory Tests 03/10/22 05:19: White Blood Count 12.3, Red Blood Count 3.73, Hemoglobin 10.9, Hematocrit 33, Mean Corpuscular Volume 88, Mean Corpuscular Hemoglobin 29, Mean Corpuscular Hemoglobin Concent 33, Red Cell Distribution Width 16.0, Platelet Count 226, Mean Platelet Volume 9.3, Sodium Level 138, Potassium Level 3.5, Chloride Level 106, Carbon Dioxide Level 23, Anion Gap 9, Blood Urea Nitrogen 9, Creatinine 0.74, Estimat Glomerular Filtration Rate 84, BUN/Creatinine Ratio 12, Glucose Level 121, Calcium Level 9.1, Magnesium Level 1.8 Imaging: Reviewed Imaging Report Discussion & Recommendations Discharge Planning: >30 minutes discharge planning Discharge Home Medications: Active Scripts Active Cephalexin 500 Mg Tablet 500 Mg PO BID Azithromycin 250 Mg Tablet 250 Mg PO DAILY Reported Alprazolam 1 Mg Tablet 0.5 Mg PO BID PRN Bystolic (Nebivolol HCl) 10 Mg Tab 10 Mg PO DAILY Anoro Ellipta 62.5-25 Mcg INH (Umeclidinium Brm/Vilanterol Tr) 1 Each Blst.w.dev 1 Each IH DAILY Daily Vitamin Formula (Multivitamin) 1 Each Tablet 1 Each PO DAILY Crestor (Rosuvastatin Calcium) 20 Mg Tablet 10 Mg PO HS Instructions to patient/family Please see electronic discharge instructions given to patient. Problem Qualifiers (1) COPD (chronic obstructive pulmonary disease): COPD type: COPD with acute lower respiratory infection Qualified Codes: J44.0 - Chronic obstructive pulmonary disease with (acute) lower respiratory infection (2) HTN (hypertension): Hypertension type: primary hypertension Qualified Codes: I10 - Essential (primary) hypertension FAUSTO MELENDEZ MD Mar 10, 2022 08:52
--- NOTE | 2022-03-10 10:37 | Physical Therapy Daily Note ---
PT Daily Note-Current Subjective Patient states, "I'm going home." Agrees to PT. Mental Status Patient Orientation: Normal For Age Attachments: IV Transfers SCALE: Activities may be completed with or without assistive devices. 8-Ivgtgiiefh-ouqzyfh completes the activity by him/herself with no assistance from a helper. 5-Set-up or Clean-up Assistance-helper sets up or cleans up; patient completes activity. [place] assists only prior to or following the activity. 4-Supervision or Touching Assistance-helper provides verbal cues and/or touching/steadying and/or contact guard assistance as patient completes activity. Assistance may be provided throughout the activity or intermittently. 3-Partial/Moderate Assistance-helper does LESS THAN HALF the effort. [place] lifts, holds or supports trunk or limbs, but provides less than half the effort. 2-Substantial/Maximal Assistance-helper does MORE THAN HALF the effort. [place] lifts or holds trunk or limbs and provides more than half the effort. 2-Wevvwdxno-bstirl does ALL the effort. Patient does none of the effort to complete the activity. Or, the assistance of 2 or more helpers is required for the patient to complete the activity. If activity was not attempted, code reason: 7-Patient Refused. 9-Not Applicable-not attempted and the patient did not perform the activity before the current illness, exacerbation or injury. 10-Not Attempted due to Environmental Limitations-(lack of equipment, weather restraints, etc.). 88-Not Attempted due to Medical Conditions or Safety Concerns. Lying to Sitting/Side of Bed(Q: 6 Sit to Stand (QC): 6 Chair/Ggw-se-Wzmdt Xfer(QC): 6 Gait Training Distance: 500' Walk 10 feet (QC): 6 Walk 50 ft with 2 Turns(QC): 6 Walk 150 ft (QC): 6 Gait Assistive Device: FWW safe and functional with no deviation Assessment Patient is currently at independent PLOF with all gross motor skills. PT to dismiss patient from services at this time. PT Snf Goals Snf Goals PT Snf Goals Time Frame: Mar 14, 2022 Roll Left & Right (QC): 6 Sit to Lying (QC): 6 Lying-Sitting on Side/Bed(QC): 6 Sit to Stand (QC): 6 Chair/Sfy-wh-Lgtsj Xfer(QC): 6 Toilet Transfer (QC): 6 Walk 10 feet (QC): 6 Walk 50ft with 2 Turns (QC): 6 Walk 150 ft (QC): 6 PT Plan Treatment/Plan Treatment Plan: Discontinue PT, goals met Treatment Plan: Education, Functional Activity Catherine, Functional Strength, Gait, Safety, Therapeutic Exercise, Transfers Treatment Duration: Mar 14, 2022 Frequency: 6 times per week Estimated Hrs Per Day: .25 hour per day Patient and/or Family Agrees t: Yes Time/GCodes Time In: 735 Time Out: 745 Total Billed Treatment Time: 10 Total Billed Treatment 1 visit FA 10 min JUANA PASCUAL PT Mar 10, 2022 10:37
== END 2022-03-10 09:30 | disposition home or self-care (01) | DRG 871 ==
LOC: 4TH 14:25
PROVIDERS: ADMIT Internal Medicine; ATTEND Internal Medicine
DX: A41.9 Sepsis, unspecified organism (principal); J18.9 Pneumonia, unspecified organism; J44.0 Chronic obstructive pulmonary disease with (acute) lower respiratory infection; J44.1 Chronic obstructive pulmonary disease with (acute) exacerbation; I10 Essential (primary) hypertension; F17.210 Nicotine dependence, cigarettes, uncomplicated; E78.00 Pure hypercholesterolemia, unspecified; F41.9 Anxiety disorder, unspecified; M19.91 Primary osteoarthritis, unspecified site; Z88.1 Allergy status to other antibiotic agents; Z91.041 Radiographic dye allergy status
CPT/HCPCS: 36415; 71045; 80048; 83735; 85027; 94640; 94664